=== PATIENT | male | born 1950 | race American Indian/Alaskan Native ===

== ENCOUNTER 2017-03-23 11:15 | Day surgery (SDC) | payer OTHER, MEDICARE ==
[~2017-03-23 11:15] MED LIST: IOPIDINE OD ONE; MYDRIACYL OD ONE; NEOFRIN OD ONE
[2017-03-23] MEDS ORDERED: AK-Dilate ONE ×2 (12:30→12:32)
[2017-03-23] MEDS ORDERED: MYDRIACYL ONE (12:30)
[2017-03-23] MEDS ORDERED: IOPIDINE ONE (12:31)
[2017-03-23 12:56] VITALS: BP 160/92
== END 2017-03-23 11:16 | disposition home or self-care (01) ==
LOC: OR 11:15
PROVIDERS: ATTEND Specialist
DX: E11.36 Type 2 diabetes mellitus with diabetic cataract (principal); H26.491 Other secondary cataract, right eye; I10 Essential (primary) hypertension; Z79.84 Long term (current) use of oral hypoglycemic drugs; Z79.899 Other long term (current) drug therapy; Z79.82 Long term (current) use of aspirin
CPT/HCPCS: 82962